=== PATIENT | male | born 1975 | race Caucasian/White ===

== ENCOUNTER 2019-10-10 13:50 | Outpatient (CLI) | payer OTHER ==
--- NOTE | 2019-10-10 14:35 | RAD ---
CERVICAL SPINE SERIES WITH FLEXION AND EXTENSION: Date: 10/10/2019 HISTORY: Neck pain with radiculopathy. FINDINGS: Vertebral bodies are normal in height. Mild disc narrowing at C5-6. Some minimal disc narrowing at C4 -5 and C6-7. There is very limited motion on the flexion or extension views. No abnormal motion visua lized. IMPRESSION: Arthritic changes of the lower cervical spine. POS: [id number]
--- NOTE | 2019-10-10 15:14 | MRI ---
MRI cervical spine noncontrast: 10/10/2019 HISTORY: 44-year-old male with cervical radiculopathy. FINDINGS: Vertebral body heights are maintained. Alignment is normal. Cervical spinal cord is normal in size an d signal. No high-grade facet DJD at any level. Mild to moderate disc space narrowing at C5-6 and C6-7. C1-2: Normal. C2-3: Normal. C3-4: No central stenosis. No high-grade neural foraminal stenosis. C4-5: Small bilateral uncinate process osteophytes. No high-grade neural foraminal stenosis. Minimal broad-based disc-osteophytic bar complex minimally indents ventral surface of thecal sac. No high-grade central stenosis. C5-6: Mild, shallow broad-based disc-osteophyte complex abuts ventral surface of spinal cord. It caus es mild to moderate central spinal canal stenosis. Small right uncinate process osteophytes cause mild right neural foraminal stenosis. Slightly larger left uncinate process osteophytes cause mild to moderate left neural foraminal stenosis. C6-7: There is a disc herniation with central, left central, and right central components. The right central component continues laterally and is the largest portion of the disc, protruding far into the right neural foramen, causing severe right neural foraminal stenosis, significantly impinging on the exiting right C7 nerve root. The right-the central component of the disc herniation mildly flattens the right ventral portion of the spinal cord. The spinal cord is slightly displaced posterio rly in the spinal canal. The disc extrusion occupies approximately 20% volume of the spinal canal. Small left uncinate process osteophytes cause mild to moderate left neural foraminal stenosis. 7-T1: Mild to moderate right neural foraminal stenosis. Mild left neural foraminal stenosis. No centr al stenosis. IMPRESSION: Moderate size disc extrusion at C6-7, with central, left-central, and right-central components. It mi ldly impinges on the spinal cord. The right foraminal component of the disc extrusion significantly compresses the right exiting C7 nerve root in the neural foramen.
== END 2019-10-10 13:51 | disposition home or self-care (01) ==
LOC: TBSIIMAG 13:50
PROVIDERS: ATTEND Neurological Surgery
DX: M50.123 Cervical disc disorder at C6-C7 level with radiculopathy (principal); M46.92 Unspecified inflammatory spondylopathy, cervical region
CPT/HCPCS: 72040; 72141

== ENCOUNTER 2020-01-06 15:49 | Outpatient (CLI) | payer OTHER ==
--- NOTE | 2020-01-06 16:23 | RAD ---
Exam: Cervical spine 6 views HISTORY: Cervical radiculopathy. Disc replacement surgery 6 weeks ago. FINDINGS: On the open-mouth projection, lateral masses of C1 and C2 articulate appropriately. Visuali zed odontoid process is intact Of the AP projection, no malalignment Predental space is normal. No prevertebral soft tissue swelling Straightening of normal cervical lordosis on the lateral projection. There is a prosthesis at the C6- C7 disc space. Moderate degenerative disc disease at C5-C6. The cervicothoracic junction is grossly normal on the swimmer's view Oblique projections demonstrate mild bilateral neural foraminal narrowing at C5-C6. Disc spacer at C6-C7 does not demonstrate any associated perihardware lucency. IMPRESSION: Prosthetic disc spacer at C6-C7. No evidence of associated perihardware lucency.
== END 2020-01-06 15:50 | disposition home or self-care (01) ==
LOC: TBSIIMAG 15:49
DX: M54.12 Radiculopathy, cervical region (principal); Z98.890 Other specified postprocedural states
CPT/HCPCS: 72052

== ENCOUNTER 2020-02-27 15:53 | Outpatient (CLI) | payer OTHER ==
--- NOTE | 2020-02-27 16:21 | RAD ---
EXAM: XR Cerv Sp Ap Lat STANDARD DATE: 02/27/2020 3:55 PM INDICATION: Follow-up cervical spine surgery COMPARISON: January 06, 2020 FINDING: Since the comparison examination the intervertebral disc prosthesis at C6-7 appears unchang ed in position from. Moderate disc degenerative disease at C5-6 is stable. Mild facet osteoarthrosis at C3-4, C4-5 and C5-6 is similar. Prevertebral soft tissues are normal appearing. Lat eral masses are symmetric. Lung apices are clear. IMPRESSION:Stable postoperative cervical spine. Stable mild cervical spondylosis.
== END 2020-02-27 15:54 | disposition home or self-care (01) ==
LOC: TBSIIMAG 15:53
PROVIDERS: ATTEND Orthopaedic Surgery
DX: Z47.1 Aftercare following joint replacement surgery (principal); M47.812 Spondylosis without myelopathy or radiculopathy, cervical region; Z98.890 Other specified postprocedural states; Z96.698 Presence of other orthopedic joint implants
CPT/HCPCS: 72040